=== PATIENT | male | born 1940 | race Caucasian/White ===

== ENCOUNTER → 2016-07-07 | Outpatient (CLI) | payer OTHER, MEDICARE ==
--- NOTE | 2016-07-07 18:33 | DX ---
DEXA Bone Mineral Densitometry Clinical Indications: 76-year-old male, Z13.820, screening for osteoporosis, cardiac amyloidosis, th yroid dysfunction on Synthroid, history of lumbar surgery Comparison: None Technique: Bone Mineral Densitometry (BMD) by [employer] Energy X-Ray Absorptiometry (DEXA) was performed utilizing the [employer] scanner. The lumbar spine was not measured due to prior surgery. The rohit ateral hips and forearm were evaluated in the AP projection. Vertebral fracture assessment was also performed. AP Left Hip: Neck BMD: 0.841 gm/cm2 T-score: -1.8 SD Z-score: -0.6 SD AP Right Hip: Neck BMD: 0.917 gm/cm2 T-score: -1.2 SD Z-score: 0 SD AP Left Forearm, 06/17: BMD: 0.995 gm/cm2 T-score: 0.1 SD Z-score: 1.0 SD Vertebral Fracture Assessment: No significant fracture deformity. Conclusion: Considering the lowest measured site, the patient has low bone density. The ten year FRAX risk for any major osteoporotic fracture is 7.2% and for a hip fracture is 2.1%. Any bone loss in this patient is probably related to aging or testosterone deficiency. To prevent osteoporosis and to promote the patient's bone density, the following recommendations shou ld be considered: 1. Pursue a regular regimen of weightbearing and muscle strengthening exercises in order to reduce t he risk of falls and fractures (as tolerated by the patient's general medical condition). 2. Ensure that daily dietary calcium uptake is maximized. 3. Consider checking the serum vitamin D and testosterone levels. Ensure that intake of vitamin D is 800 IU per day (for ages 71 and older). 4. Consider follow-up DEXA scan in two years to assess the rate of bone loss in this patient.
== END ==
LOC: FIMAGING 13:49
PROVIDERS: ATTEND Family Medicine
DX: Z13.820 Encounter for screening for osteoporosis (principal); M85.80 Other specified disorders of bone density and structure, unspecified site

== ENCOUNTER → 2017-03-25 | Outpatient (CLI) | payer OTHER, MEDICARE | LOC: GIMAGING 10:10 | PROVIDERS: ATTEND Family Medicine | DX: M19.042 Primary osteoarthritis, left hand (principal) | CPT/HCPCS: 73130-PO ==

== ENCOUNTER 2017-03-27 17:25 | Emergency (ER) | payer OTHER, MEDICARE ==
[2017-03-27 17:35] VITALS: RESP 16; TEMP 98.6
--- NOTE | 2017-03-27 17:42 | EDPHY ---
H & P Time Seen by Provider: 03/27/17 17:38 HPI/ROS: Chief complaint. Fall HPI. Patient is a 77-year-old male here fall this afternoon. The patient was coming back from a physical therapy appointment and got out of his car, walked about 15 feet and then climbed a flight of stairs. At the top of the stairs he became dizzy that he describes as feeling like he was going to pass out. He then collapsed. He struck the left side of his head on a wall and injured his left hand and left knee. He has had similar symptoms twice in the year past month. He did not lose consciousness either with the near-syncope or after hitting his head. He injured his left hand and left knee as well. He is not on blood thinners. He has no headache or change in his vision. No neck or back pain. No chest discomfort or shortness of breath or abdominal pain. He has had some left low back pain for the past 3 days. Patient is supposed to be on 24/7 oxygen but went to the appointment without the oxygen was not wearing the oxygen when he had a the fall today. He also notes worsening peripheral neuropathy over the last several days. ROS Constitutional. Near syncope Eyes. no problems with vision ENT. Bump on head Cardiovascular. no chest pain Respiratory. no shortness of breath, no cough Abdominal. no abdominal pain, no nausea/vomiting, no diarrhea . no problems urinating MS. 3 days left paralumbar pain; pain left hand Skin. Abrasion left knee Lymph. no swollen glands Neuro. Near syncope while walking causing the fall Past Medical/Surgical History: Cardiac amyloidosis. Stem-cell transplant. Diverticulitis, carpal tunnel syndrome. Colon resection. Diptuyen's surgery. Dyslipidemia, pulmonary hypertension Social History: , nonsmoker, no alcohol Smoking Status: Never smoked Physical Exam: General Appearance: Alert well-developed male mild distress vital signs significant for initial blood pressure 95/58 Eyes: Pupils equal and round no pallor or injection. ENT, no hemotympanum or Ventura sign. No oral pharyngeal or dental trauma. Slight abrasion to the left upper forehead Respiratory: There are no retractions, lungs are clear to auscultation. Cardiovascular: Regular rate and rhythm. Gastrointestinal: Abdomen is soft and nontender, no masses, bowel sounds normal. Neurological: Awake and alert, sensory and motor exams grossly normal. Skin: Abrasion left knee Musculoskeletal: No C-spine, T, L spine tenderness. Patient shows me mild tenderness to the left side of L3 that has been bothering him for the past 3 days. No surface trauma or findings Extremities symmetrical, full range of motion. Pain to the base of the left 5th metacarpal Psychiatric: Patient is oriented X 3, there is no agitation. Constitutional: Initial Vital Signs Temperature (C) 37.0 C 03/27/17 17:31 Heart Rate 88 03/27/17 17:31 Respiratory Rate 16 03/27/17 17:31 Blood Pressure 95/58 L 03/27/17 17:31 O2 Sat (%) 93 03/27/17 17:31 O2 Delivery Mode Room Air O2 (L/minute) 2 Allergies/Adverse Reactions: ciprofloxacin [From Cipro] Allergy (Verified 01/11/16 09:05) ciprofloxacin HCl [From Cipro] Allergy (Verified 01/11/16 09:05) diphenhydramine HCl [From Benadryl] Allergy (Verified 01/11/16 09:05) metronidazole [From Flagyl] Allergy (Verified 01/11/16 09:05) Metronidazole HCl [From Flagyl] Allergy (Verified 01/11/16 09:05) Home Medications: Medication Instructions Recorded Acyclovir [Zovirax 400 mg (*)] 400 mg PO BID 11/13/15 Amitriptyline HCl [Elavil 10 mg 10 mg PO HS 11/13/15 (*)] Levothyroxine [Synthroid 88 mcg 88 mcg PO DAILY 11/13/15 (*)] Lidocaine 5% [Lidoderm 5% Patch 1 ea TD DAILY 11/13/15 (*)] Losartan Potassium [Cozaar 50 mg 50 mg PO DAILY 11/13/15 (*)] clonazePAM [klonoPIN (*)] 1 mg PO DAILY PRN 11/13/15 Albuterol [Ventolin Hfa Inhaler] 2 puffs IH Q4 PRN #1 mdi 11/14/15 Benzonatate [Tessalon Pearles] 200 mg PO TID PRN #30 cap 11/14/15 Spironolactone [Aldactone 25 MG 12.5 mg PO DAILY #0 tab 11/14/15 (*)] Atorvastatin Calcium [Lipitor 40 40 mg PO DAILY 03/27/17 mg (*)] Beclomethasone Qvar 80 [Qvar 80 1 puffs IH BIDI 03/27/17 (*)] Cephalexin [Keflex (*)] 500 mg PO QID 03/27/17 Furosemide [Lasix 20 MG (*)] 20 mg PO BID 03/27/17 Isosorbide Mononitrate [Isosorbide 30 mg PO 03/27/17 Mononitrate ER] Pregabalin [Lyrica 50mg (*)] 03/27/17 Spironolactone [Aldactone 25 MG 25 mg PO BID 03/27/17 (*)] Torsemide [Demadex] 20 mg PO BID 03/27/17 hydrALAZINE [Apresoline 50 mg (*)] 25 mg PO 03/27/17 predniSONE [predniSONE] 10 mg PO 03/27/17 Medical Decision Making - Diagnostics EKG Interpretation: EKG interpreted by me shows normal sinus rhythm with normal interval. Left axis deviation with left anterior fascicular block. Prolonged QT QRS is otherwise normal there is no significant ST elevation or depression. The rate is 83 Imaging Results: Imaging Impressions Chest X-Ray 03/27/17 18:22 Impression: Chest negative for acute posttraumatic sequela. Hand X-Ray 03/27/17 18:22 Impression: Negative for acute osseous abnormality with degenerative osteoarthritic changes noted. Knee X-Ray 03/27/17 18:22 Impression: Negative for fracture. X-rays of chest, hand, knee are reviewed by me and are negative for fracture or pneumothorax with pneumonia. No evidence for rib fractures Procedures: IV normal saline, monitor ED Course/Re-evaluation: On serial evaluations patient remained stable. The patient and I discussed laboratory EKG the radiologic examination. We discussed elevated troponin. The patient would like to be transported To [facility] Because his physicians are there. I spoke to print decorator hearing care practitioner Dr. Mcneil who recommended repeat troponin in 1 hour. He is agreeable to patient transport if the troponin as not significantly elevated. Repeat troponin is actually slightly lower. I spoke print decorator at [facility] again and he agrees to the admission. Patient is transported by [facility] ambulance and all paper work is filled out Differential Diagnosis: I think likely the patient's syncope and near syncopal episodes are due to his cardiac amyloidosis causing outflow obstruction. I have considered acute coronary syndrome and the patient does have an elevated troponin. I have considered congestive heart failure and the patient's BNP is elevated. - Data Points Laboratory Results: Laboratory Results 03/27/17 18:37 03/27/17 19:03 03/27/17 03/27/17 03/27/17 20:47 19:03 19:03 WBC RBC Hgb Hct MCV MCH MCHC RDW Plt Count MPV Neut % (Auto) Lymph % (Auto) Johnson % (Auto) Eos % (Auto) Baso % (Auto) Nucleat RBC Rel Count Absolute Neuts (auto) Absolute Lymphs (auto) Absolute Monos (auto) Absolute Eos (auto) Absolute Basos (auto) Absolute Nucleated RBC Immature Gran % Immature Gran # PT 13.1 SEC SEC (12.0-15.0) INR 1.00 (0.83-1.16) APTT 27.4 SEC SEC (23.0-38.0) Sodium 135 mEq/L mEq/L (134-144) Potassium 3.9 mEq/L mEq/L (3.5-5.2) Chloride 100 mEq/L mEq/L (97-110) Carbon Dioxide 23 mEq/l mEq/l (22-31) Anion Gap 12 mEq/L mEq/L (8-16) BUN 39 mg/dL H mg/dL (7-23) Creatinine 1.9 mg/dL H mg/dL (0.7-1.3) Estimated GFR 35 Glucose 105 mg/dL H mg/dL (70-100) Calcium 9.3 mg/dL mg/dL (8.5-10.4) Troponin I 0.042 ng/mL H ng/mL 0.047 ng/mL H ng/mL (0.000-0.034) (0.000-0.034) NT-Pro-B Natriuret Pep 1460 pg/mL H pg/mL (0-450) 03/27/17 03/27/17 03/27/17 18:37 18:37 18:37 WBC 10.03 10^3/uL H 10^3/uL (3.80-9.50) RBC 3.86 10^6/uL L 10^6/uL (4.40-6.38) Hgb 13.1 g/dL L g/dL (13.7-17.5) Hct 38.2 % L % (40.0-51.0) MCV 99.0 fL fL (81.5-99.8) MCH 33.9 pg pg (27.9-34.1) MCHC 34.3 g/dL g/dL (32.4-36.7) RDW 14.2 % % (11.5-15.2) Plt Count 216 10^3/uL 10^3/uL (150-400) MPV 10.3 fL fL (8.7-11.7) Neut % (Auto) 71.8 % % (39.3-74.2) Lymph % (Auto) 12.7 % L % (15.0-45.0) Johnson % (Auto) 11.5 % % (4.5-13.0) Eos % (Auto) 2.4 % % (0.6-7.6) Baso % (Auto) 1.1 % % (0.3-1.7) Nucleat RBC Rel Count 0.0 % % (0.0-0.2) Absolute Neuts (auto) 7.21 10^3/uL H 10^3/uL (1.70-6.50) Absolute Lymphs (auto) 1.27 10^3/uL 10^3/uL (1.00-3.00) Absolute Monos (auto) 1.15 10^3/uL H 10^3/uL (0.30-0.80) Absolute Eos (auto) 0.24 10^3/uL 10^3/uL (0.03-0.40) Absolute Basos (auto) 0.11 10^3/uL H 10^3/uL (0.02-0.10) Absolute Nucleated RBC 0.00 10^3/uL 10^3/uL (0-0.01) Immature Gran % 0.5 % % (0.0-1.1) Immature Gran # 0.05 10^3/uL 10^3/uL (0.00-0.10) PT REJ INR TNP APTT REJ Sodium REJ Potassium Not Reported Chloride Not Reported Carbon Dioxide Not Reported Anion Gap Not Reported BUN Not Reported Creatinine Not Reported Estimated GFR Not Reported Glucose Not Reported Calcium Not Reported Troponin I REJ NT-Pro-B Natriuret Pep REJ Medications Given: Discontinued Medications Acetaminophen (Tylenol) 1,000 mg PO EDNOW ONE Stop: 03/27/17 19:33 Last Admin: 03/27/17 19:34 Dose: 1,000 mg Sodium Chloride (Ns) 1,000 mls @ 0 mls/hr IV EDNOW ONE; Wide Open PRN Reason: Protocol Stop: 03/27/17 18:23 Last Admin: 03/27/17 18:46 Dose: 1,000 mls Departure - Departure Disposition: Acute Care Hospital [facility] Clinical Impression: Cardiac amyloidosis, Near syncope Condition: Fair Referrals: Wiley Harris, [Primary Care Provider] - As per Instructions
[2017-03-27] MEDS ORDERED: NS 1,000 ML IV ONE (18:22)
--- NOTE | 2017-03-27 18:24 | CPEKG ---
Heart Rate: 83 RR Interval: 723 P-R Interval: 204 QRSD Interval: 108 QT Interval: 424 QTC Interval: 499 P Dale: 72 QRS Dale: -52 T Wave Dale: 102 EKG Severity - ABNORMAL ECG - EKG Impression: SINUS RHYTHM EKG Impression: LEFT ANTERIOR FASCICULAR BLOCK EKG Impression: BORDERLINE PROLONGED QT INTERVAL Electronically Signed By: New Ortega 27-Mar-2017 23:18:21
[2017-03-27 18:48] LABS: % IMMATURE GRANULYOCYTES 0.5 % (0.0-1.1); ABSOLUTE IMMATURE GRANULOCYTES 0.05 10^3/uL (0.00-0.10); ADD DIFF? NO; ADD MORPH? NO; ADD SCAN? NO; ATYPICAL LYMPHOCYTE FLAG 0 (0-99); FRAGMENT RBC FLAG 0 (0-99); HEMATOCRIT 38.2 % (40.0-51.0); HEMOGLOBIN 13.1 g/dL (13.7-17.5); LEFT SHIFT FLG 0 (0-99); LIPEMIA HEMOLYSIS FLAG 90 (0-99); MEAN CELL HEMOGLOBIN 33.9 pg (27.9-34.1); MEAN CELL HEMOGLOBIN CONCENTR. 34.3 g/dL (32.4-36.7); MEAN PLATELET VOLUME 10.3 fL (8.7-11.7); PLATELET CLUMPS FLAG 30 (0-99); PLATELET COUNT 216 10^3/uL (150-400); RED BLOOD CELL COUNT 3.86 10^6/uL (4.40-6.38); RED CELL DISTRIBUTION WIDTH 14.2 % (11.5-15.2)
[2017-03-27 19:25] LABS: PROTIME(PATIENT) 13.1 SEC (12.0-15.0)
[2017-03-27 19:26] LABS: ANION GAP 12 mEq/L (8-16); APTT 27.4 SEC (23.0-38.0); CALCIUM 9.3 mg/dL (8.5-10.4); CARBON DIOXIDE 23 mEq/l (22-31); CHLORIDE 100 mEq/L (97-110); CREATININE 1.9 mg/dL (0.7-1.3); GLOMERULAR FILTRATION RATE 35; GLUCOSE 105 mg/dL (70-100); POTASSIUM 3.9 mEq/L (3.5-5.2); SODIUM 135 mEq/L (134-144)
[2017-03-27] MEDS ORDERED: ACETAMINOPHEN 500 MG TAB PO ONE (19:32)
[2017-03-27 19:38] LABS: TROPONIN I 0.047 ng/mL (0.000-0.034)
[2017-03-27 22:31] VITALS: BP 114/68; PULSE 79; O2SAT 96
== END 2017-03-27 22:20 | disposition short-term general hospital (02) ==
DX: E85.4 Organ-limited amyloidosis (principal); R55 Syncope and collapse; I10 Essential (primary) hypertension; E86.9 Volume depletion, unspecified; W10.8XXA Fall (on) (from) other stairs and steps, initial encounter; Y99.8 Other external cause status; Y93.01 Activity, walking, marching and hiking

== ENCOUNTER → 2017-08-29 | Outpatient (CLI) | payer OTHER, MEDICARE | LOC: GIMAGING 11:46 | PROVIDERS: ATTEND Family Medicine | DX: R06.02 Shortness of breath (principal); R05 Cough | CPT/HCPCS: 71046-PO ==

== ENCOUNTER → 2017-11-04 | Outpatient (CLI) | payer OTHER, MEDICARE | LOC: FIMAGING 09:46 | PROVIDERS: ATTEND Family Medicine | DX: G31.9 Degenerative disease of nervous system, unspecified (principal); R94.02 Abnormal brain scan; G50.8 Other disorders of trigeminal nerve ==

== ENCOUNTER → 2018-07-29 | Outpatient (CLI) | payer OTHER, MEDICARE | LOC: GIMAGING 11:54 | PROVIDERS: ATTEND Family Medicine | DX: M25.562 Pain in left knee (principal); I43 Cardiomyopathy in diseases classified elsewhere; M17.12 Unilateral primary osteoarthritis, left knee ==

== ENCOUNTER → 2018-08-26 | Outpatient (CLI) | payer OTHER, MEDICARE | LOC: GIMAGING 12:18 | PROVIDERS: ATTEND Family Medicine | DX: I50.9 Heart failure, unspecified (principal); R09.02 Hypoxemia; R05 Cough; J40 Bronchitis, not specified as acute or chronic | CPT/HCPCS: 71046-PO ==